=== PATIENT | female | born 1985 | race Caucasian/White ===

== ENCOUNTER 2016-10-15 14:14 | Observation (INO) | payer MEDICAID ==
[~2016-10-15] VITALS: Ht 149.9 cm; Wt 90.7 kg
[2016-10-15] MEDS ORDERED: PREN-88 PO (17:25)
== END 2016-10-15 19:10 | disposition home or self-care (01) ==
LOC: L&D 14:14
PROVIDERS: ADMIT Obstetrics & Gynecology; ATTEND Obstetrics & Gynecology
DX: O26.893 Other specified pregnancy related conditions, third trimester (principal); R10.9 Unspecified abdominal pain; O24.419 Gestational diabetes mellitus in pregnancy, unspecified control; Z3A.37 37 weeks gestation of pregnancy
CPT/HCPCS: 76815; 76818; G0378

== ENCOUNTER 2016-10-18 00:37 | Observation (INO) | payer MEDICAID ==
[~2016-10-18] VITALS: Ht 149.9 cm; Wt 90.7 kg
[~2016-10-18 00:37] MED LIST: PREN-88 PO
[2016-10-18] MEDS: LACTATED RINGERS 1,000 ML IV SCH ×2 (01:30→02:08)
[2016-10-18 01:46] LABS: EOSINOPHILS % 0.3 % (0.0-5.0); HEMATOCRIT. 27.6 % (36.0-48.0); HEMOGLOBIN. 8.6 g/dL (12.0-16.0); LYMPHOCYTES % 30.5 % (20.0-50.0); MEAN CORPUSCULAR HEMOGLOBIN 20.8 pg (28.0-32.0); MEAN CORPUSCULAR VOLUME 66.7 fL (81.0-99.0); MEAN PLATELET VOLUME 8.2 fl (7.4-10.4); MONOCYTES % 8.7 % (2.0-8.0); NEUTROPHILS % 59.5 % (40.0-76.0); PLATELET 365 x1000/uL (130-400); RED BLOOD CELL COUNT 4.14 mill/uL (4.2-5.4); RED CELL DISTRIBUTION WIDTH 17.5 % (11.6-14.6)
[2016-10-18 01:46] LABS: CLARITY URINE CLOUDY (CLEAR); COLOR URINE YELLOW (YELLOW); GLUCOSE URINE NEGATIVE (NEGATIVE); KETONES URINE NEGATIVE (NEGATIVE); LEUKOCYTE ESTERASE URINE 2+ (NEGATIVE); NITRITE URINE NEGATIVE (NEGATIVE); OCCULT BLOOD URINE 1+ (NEGATIVE); PH URINE 6.5 (4.5-8.0); PROTEIN URINE NEGATIVE (NEGATIVE); SPECIFIC GRAVITY URINE 1.025 (1.005-1.030)
[2016-10-18 01:51] LABS: CHLORIDE 107 mEq/L (98-107)
[2016-10-18 01:59] LABS: CARBON DIOXIDE 22 mEq/L (21-32)
[2016-10-18] MEDS ORDERED: DEXT 5%/LACTATED RINGERS 1,000 ML IV SCH (03:00)
[2016-10-18] MEDS ORDERED: CEFAZOLIN 2,000 MG in DEXT 5% WATER 100 ML IV SCH (03:00)
[2016-10-18 03:44] LABS: PLATELET ESTIMATE NORMAL
== END 2016-10-18 04:55 | disposition home or self-care (01) ==
LOC: L&D 00:37
PROVIDERS: ADMIT Obstetrics & Gynecology; ATTEND Obstetrics & Gynecology
DX: O62.9 Abnormality of forces of labor, unspecified (principal); Z3A.38 38 weeks gestation of pregnancy
CPT/HCPCS: 36415; 80053; 81001; 85025; 96361; 96365; 99281; G0378; J0690; J7120; J7060

== ENCOUNTER 2016-10-19 19:23 | Inpatient (IN) | payer MEDICAID ==
[~2016-10-19] VITALS: Ht 149.9 cm; Wt 90.7 kg
[2016-10-19] MEDS ORDERED: LIDOCAINE HCL 1% 20ML VIAL (Pyxis) INJ INFIL SCH (21:00)
[2016-10-19] MEDS ORDERED: NALOXONE HCL 0.4 MG/ML 1ML VIAL IM PRN (21:00)
[2016-10-19] MEDS ORDERED: DEXT 5%/LR + PITOCIN 20UNITS/L 1,000 ML IV SCH (21:00)
[2016-10-19] MEDS ORDERED: LACTATED RINGERS 1,000 ML IV SCH (21:00)
[2016-10-19] MEDS ORDERED: BUTORPHANOL TARTRATE 2 MG/ML VIAL IV PRN (21:00)
[2016-10-19] MEDS ORDERED: METHYLERGONOVINE MALEATE 0.2 MG/ML IM PRN (21:00)
[2016-10-19] MEDS ORDERED: OXYTOCIN 20 UNITS in LACTATED RINGERS 1,000 ML IV SCH (22:00)
[2016-10-19] MEDS ORDERED: RHO(D) IMMUNE GLOBULIN 300 MCG/SYR IM PRN (22:30)
[2016-10-19] MEDS ORDERED: IBUPROFEN 400MG TABLET PO PRN (22:30)
[2016-10-19 23:37] LABS: BASOPHILS % 0.4 % (0.0-2.0); EOSINOPHILS % 0.1 % (0.0-5.0); HEMATOCRIT. 29.6 % (36.0-48.0); HEMOGLOBIN. 9.2 g/dL (12.0-16.0); LYMPHOCYTES % 15.2 % (20.0-50.0); MEAN CORPUSCULAR HEMOGLOBIN 20.6 pg (28.0-32.0); MEAN PLATELET VOLUME 8.2 fl (7.4-10.4); MONOCYTES % 3.8 % (2.0-8.0); NEUTROPHILS % 80.5 % (40.0-76.0); PLATELET 364 x1000/uL (130-400); RED BLOOD CELL COUNT 4.48 mill/uL (4.2-5.4); RED CELL DISTRIBUTION WIDTH 17.4 % (11.6-14.6)
[2016-10-19 23:37] LABS: *AMPHETAMINES SCREEN URINE NEGATIVE (NEGATIVE); *BARBITURATES SCREEN URINE NEGATIVE (NEGATIVE); *BENZODIAZEPINES SCREEN URINE NEGATIVE (NEGATIVE); *COCAINE SCREEN URINE NEGATIVE (NEGATIVE); CANNABINOID URINE SCREEN NEGATIVE (NEGATIVE); METHADONE URINE SCREEN NEGATIVE (NEGATIVE); OPIATES URINE SCREEN NEGATIVE (NEGATIVE); PHENCYCLIDINE URINE SCREEN NEGATIVE (NEGATIVE)
[2016-10-19 23:57] LABS: PARTIAL THROMBOPLASTIN TIME 27.3 sec (23.4-31.0); PROTHROMBIN TIME 10.5 sec (9.4-11.6)
[2016-10-20 00:16] LABS: GLUCOSE URINE NEGATIVE (NEGATIVE); KETONES URINE NEGATIVE (NEGATIVE); LEUKOCYTE ESTERASE URINE TRACE (NEGATIVE); NITRITE URINE NEGATIVE (NEGATIVE); OCCULT BLOOD URINE NEGATIVE (NEGATIVE); PROTEIN URINE NEGATIVE (NEGATIVE); SPECIFIC GRAVITY URINE 1.004 (1.005-1.030); UROBILINOGEN URINE 0.2 E.U./dL (0.2-1.0)
[2016-10-20 00:19] LABS: CLARITY URINE CLEAR (CLEAR); COLOR URINE STRAW (YELLOW)
[2016-10-20 00:50] VITALS: BP 100/41
[2016-10-20 01:20] VITALS: BP 98/49
[2016-10-20 01:50] VITALS: BP 108/58
[2016-10-20] MEDS: ACETAMINOPHEN WITH CODEINE 300/30MG TABLET PO PRN ×2 (05:30→12:36)
[2016-10-20 06:54] LABS: HEPATITIS B SURFACE ANTIGEN NEGATIVE; RUBELLA IGG 12.5 IU/mL (4.99-10)
[2016-10-20 08:06] VITALS: BP 96/47
[2016-10-20] MEDS: IBUPROFEN 800MG TABLET PO PRN ×2 (12:36→20:08)
[2016-10-20 13:27] LABS: BASOPHILS % 0.7 % (0.0-2.0); EOSINOPHILS % 0.6 % (0.0-5.0); HEMATOCRIT. 27.2 % (36.0-48.0); HEMOGLOBIN. 8.7 g/dL (12.0-16.0); LYMPHOCYTES % 31.3 % (20.0-50.0); MEAN CORPUSCULAR VOLUME 65.5 fL (81.0-99.0); MEAN PLATELET VOLUME 7.9 fl (7.4-10.4); MONOCYTES % 6.3 % (2.0-8.0); NEUTROPHILS % 61.1 % (40.0-76.0); PLATELET 343 x1000/uL (130-400); RED BLOOD CELL COUNT 4.16 mill/uL (4.2-5.4); RED CELL DISTRIBUTION WIDTH 17.2 % (11.6-14.6)
[2016-10-20 15:51] VITALS: BP 108/81
[2016-10-20] MEDS ORDERED: TETANUS, DIPHTHERIA, PERTUSSIS VAC/PF 0.5ML (>7YR OLD) IM ONE (18:00)
[2016-10-20 23:45] VITALS: BP 112/52
[2016-10-21 08:00] VITALS: BP 107/51
[2016-10-21] MEDS: IBUPROFEN 800MG TABLET PO PRN (08:25)
[2016-10-21] MEDS: ACETAMINOPHEN WITH CODEINE 300/30MG TABLET PO PRN (08:26)
== END 2016-10-21 10:30 | disposition home or self-care (01) | DRG 560 ==
LOC: L&D 19:23 → OBSVTOIN 19:23 → 7EST PP/OB 10-20 00:45
PROVIDERS: ADMIT Obstetrics & Gynecology; ATTEND Obstetrics & Gynecology
PROC: 10E0XZZ Delivery of Products of Conception, External Approach (ICD-10-PCS; principal; 2016-10-19 21:05)
DX: O24.429 Gestational diabetes mellitus in childbirth, unspecified control (principal); O99.03 Anemia complicating the puerperium; Z37.0 Single live birth; Z3A.38 38 weeks gestation of pregnancy; Z87.442 Personal history of urinary calculi
CPT/HCPCS: 36415; 80305; 81001; 81003; 85025; 85610; 85730; 86592; 86703; 86762; 86850; 86900; 87340; 90715; 99281; G0378; J7120

== ENCOUNTER 2018-08-24 23:16 | Emergency (ER) | payer MEDICAID ==
[~2018-08-24] VITALS: Ht 149.9 cm; Wt 79.0 kg
[2018-08-25] MEDS ORDERED: ONDANSETRON 4MG ODT PO ONE (03:15)
[2018-08-25] MEDS ORDERED: HYDROCODONE/ACETAMINOPHEN 10/325MG TABLET PO ONE (03:15)
[2018-08-25 04:48] VITALS: BP 126/63
== END 2018-08-25 04:53 | disposition home or self-care (01) ==
LOC: ER 23:16
DX: S05.11XA Contusion of eyeball and orbital tissues, right eye, initial encounter (principal); R51 Headache; F17.210 Nicotine dependence, cigarettes, uncomplicated; Y04.0XXA Assault by unarmed brawl or fight, initial encounter; Y93.89 Activity, other specified; Y92.018 Other place in single-family (private) house as the place of occurrence of the external cause
CPT/HCPCS: 70450; 70486; 81025; 99284; Q0162

== ENCOUNTER 2022-11-29 02:03 | Emergency (ER) | payer MEDICAID ==
[~2022-11-29] VITALS: Ht 180.3 cm; Wt 110.0 kg
[2022-11-29 02:05] VITALS: O2SAT 98
[2022-11-29 04:14] VITALS: BP 126/79; PULSE 85; RESP 20; TEMP 97.8
== END 2022-11-29 04:16 | disposition home or self-care (01) ==
LOC: ER 02:03
DX: F10.129 Alcohol abuse with intoxication, unspecified (principal); R41.82 Altered mental status, unspecified; Y90.0 Blood alcohol level of less than 20 mg/100 ml
CPT/HCPCS: 99283

== ENCOUNTER 2023-08-24 19:43 | Emergency (ER) | payer OTHER ==
[~2023-08-24] VITALS: Ht 149.9 cm; Wt 95.0 kg
[2023-08-24 20:54] VITALS: O2SAT 100
[2023-08-24 21:13] LABS: BASOPHILS % 0.5 % (0.0-2.0); EOSINOPHILS % 0.5 % (0.0-5.0); HEMATOCRIT. 32.2 % (36.0-48.0); LYMPHOCYTES % 30.1 % (20.0-50.0); MEAN CORPUSCULAR HEMOGLOBIN 21.1 pg (28.0-32.0); MEAN CORPUSCULAR HGB CONC 31.1 g/dL (31.0-37.0); MEAN CORPUSCULAR VOLUME 67.8 fL (81.0-99.0); MEAN PLATELET VOLUME 8.3 fl (7.4-10.4); MONOCYTES % 6.9 % (2.0-8.0); PLATELET 446 x1000/uL (130-400); RED BLOOD CELL COUNT 4.74 mill/uL (4.2-5.4); RED CELL DISTRIBUTION WIDTH 17.3 % (11.6-14.6); WHITE BLOOD COUNT 9.4 x1000/uL (4.5-11.0)
[2023-08-24 21:28] LABS: ADD RBC MORPHOLOGY YES; DIFFERENTIAL COMMENT 1
[2023-08-24 21:32] LABS: CHLORIDE 104 mEq/L (98-107); POTASSIUM 4.5 mEq/L (3.5-5.1); SODIUM 138 mEq/L (136-145)
[2023-08-24 21:33] LABS: CARBON DIOXIDE 27 mEq/L (21-32)
[2023-08-24 21:34] LABS: CALCIUM 9.6 mg/dL (8.7-10.4)
[2023-08-24 21:38] LABS: CREATININE 0.6 mg/dL (0.6-1.0); GLUCOSE 108 mg/dL (70-105)
[2023-08-24 21:39] LABS: UREA NITROGEN BLOOD 14 mg/dL (9-23)
[2023-08-24 21:41] LABS: HCG SCREEN NEGATIVE
[2023-08-24 21:47] LABS: TROPONIN I HIGH SENSITIVITY < 4 ng/L (3.0-34)
[2023-08-24 21:55] LABS: PLATELET ESTIMATE INCREASED
[2023-08-24 21:56] LABS: ANISOCYTOSIS 1+; HYPOCHROMASIA 2+; MICROCYTOSIS 3+
[2023-08-24 23:18] VITALS: BP 123/61; PULSE 69; RESP 16; TEMP 98.4
== END 2023-08-24 23:21 | disposition home or self-care (01) ==
LOC: ER 19:43
DX: R07.89 Other chest pain (principal)
CPT/HCPCS: 36415; 71045; 80048; 83880; 84484; 84703; 85025; 93005; 99285